=== PATIENT | female | born 1960 | race Caucasian/White ===

== ENCOUNTER → 2018-09-25 | Outpatient (CLI) | payer OTHER ==
[~2018-09-25] MED LIST: ASPIRIN81 M2 PO; ESTRACE0.5 MG PO; FLEXERIL PO; IBUPROFEN 800800 MG PO; LISINOPRIL20 MG PO; MOTION RELIEF25 MG PO; PREMARIN0.625 MG; TOPROL XL50 MG PO; VALIUM2 MG PO; ZOFRAN 4 MG ORAL4 M1 DIS; ZOFRAN4 MG PO
== END ==
LOC: M.RAD 16:25
DX: Z12.31 Encounter for screening mammogram for malignant neoplasm of breast (principal)

== ENCOUNTER 2019-04-28 20:05 | Emergency (ER) | payer OTHER ==
[~2019-04-28] VITALS: Ht 160 cm; Wt 79.4 kg
[2019-04-28] MEDS ORDERED: COREG6.25 MG PO (20:13)
[2019-04-28 20:52] LABS: ABSOLUTE BASOPHILS 0.1 thou/uL (0.0-0.2); ABSOLUTE EOSINOPHILS 0.5 thou/uL (0.0-0.7); ABSOLUTE LYMPHOCYTES 2.7 thou/uL (0.8-5.3); ABSOLUTE MONOCYTES 0.7 thou/uL (0.0-1.2); ABSOLUTE NEUTROPHILS 4.2 thou/uL (1.6-8.1); BASOPHILS 0.9 %; EOSINOPHILS 5.7 %; HEMATOCRIT 38.9 % (37.0-47.0); LYMPHOCYTES 32.9 %; MCH 28.3 pg (26.0-34.0); MCHC 33.4 g/dL (28.0-37.0); MCV 84.7 fL (80.0-100.0); MPV 8.9 fl. (7.2-11.1); NUCLEATED RBCS 0 /100WBC; PLATELET COUNT* 277 thou/uL (150-400); POLYS 51.5 %; RBC 4.59 mil/uL (4.20-5.00); RDW-CV 13.6 % (10.5-14.5); WBC 8.2 thou/uL (4.0-11.0)
[2019-04-28 20:57] LABS: CALCIUM 8.2 mg/dL (8.5-10.1); POTASSIUM 3.8 mmol/L (3.5-5.1); PROTIME 10.2 Seconds (9.20-11.50)
[2019-04-28 21:08] LABS: ALBUMIN 3.3 g/dL (3.4-5.0); TOTAL BILIRUBIN 0.2 mg/dL (<0.1-1.0); TOTAL PROTEIN 6.7 g/dL (6.4-8.2); TROPONIN-I LEVEL 0.12 ng/mL (<0.06)
[2019-04-29 00:11] VITALS: BP 148/88
--- NOTE | 2019-04-29 12:24 | EKG ---
[place] [address] ELECTROCARDIOGRAM REPORT Name: MICHOACANONEIL STACY Room: [facility]#: [id number] Admission: 04/28/19 Attend Phys: Discharge: 04/29/19 Date of : 64 Report #: [id number] THIS REPORT FOR: //name// [facility] ED Test Date: 2019-04-28 Test Time: 20:14:00 Pat Name: NEIL RÍOS Department: Room: Gender: F [employer] Consultant: MR : [id number] Requested By: Zara Davis Order Number: [id number] MD: Ivan Melchor Measurements Intervals [place] Rate: 69 P: 38 LA: 148 QRS: -19 QRSD: 89 T: 42 QT: 417 QTc: 447 Interpretive Statements Sinus rhythm Probable left atrial enlargement Probable left ventricular hypertrophy Inferior infarct, old Compared to ECG 09/10/2013 17:56:38 Myocardial infarct finding now present Sinus bradycardia no longer present Electronically Signed On 04-29-2019 12:23:52 CDT by Ivan Melchor [email or web address] <ELECTRONICALLY SIGNED> By: Joselin Melchor MD, [facility] 04/29/19 1223 13 13 Joselin Melchor MD, [facility] /EPI
== END 2019-04-29 00:11 | disposition home or self-care (01) ==
LOC: M.ERS 20:05
PROVIDERS: Emergency Medicine
DX: I10 Essential (primary) hypertension (principal); Z90.89 Acquired absence of other organs; Z90.49 Acquired absence of other specified parts of digestive tract; Z90.710 Acquired absence of both cervix and uterus; Z98.890 Other specified postprocedural states; Z88.5 Allergy status to narcotic agent

== ENCOUNTER → 2019-09-26 | Outpatient (CLI) | payer OTHER ==
[~2019-09-26] MED LIST changes: +COREG6.25 MG PO
== END ==
LOC: M.RAD 16:10
DX: Z12.31 Encounter for screening mammogram for malignant neoplasm of breast (principal)

== ENCOUNTER → 2020-11-07 | Outpatient (CLI) | payer BC | LOC: M.RAD 15:22 | PROVIDERS: ATTEND Family Medicine | DX: Z12.31 Encounter for screening mammogram for malignant neoplasm of breast (principal); N64.89 Other specified disorders of breast ==